=== PATIENT | female | born 1975 | race Caucasian/White ===

== ENCOUNTER 2020-03-02 07:14 | Emergency (ER) | payer OTHER ==
[2020-03-02 07:24] VITALS: TEMP 97.7; BMI 31.3
--- OUTSIDE RECORDS SUMMARY | 2020-03-02 07:37 | XMS ---
:1975 Demographics Address [address] [place] [address] Preferred Language Unknown Marital Status Unknown Gnosticist Affiliation NO Race WH Ethnic Group Unknown [facility] Support Name Relationship Address Phone SE Unavailable Unavailable Unavailable KRISTINA [address] [place] [address] Re-disclosure Warning The records that you are about to access may contain information from federally- assisted alcohol or drug abuse programs. If such information is present, then the following federally mandated warning applies: This information has been disclosed to you from records protected by federal confidentiality rules (42 CFR part 2). The federal rules prohibit you from making any further disclosure of this information unless further disclosure is expressly permitted by the written consent of the person to whom it pertains or as otherwise permitted by 42 CFR part 2. A general authorization for the release of medical or other information is NOT sufficient for this purpose. The Federal rules restrict any use of the information to criminally investigate or prosecute any alcohol or drug abuse patient.The records that you are about to access may contain highly sensitive health information, the redisclosure of which is protected by Article 27-F of the [facility] Public Health law. If you continue you may haveaccess to information: Regarding HIV / AIDS; Provided by facilities licensed or operated by the [facility] Office of Mental Health; or Provided by the [facility] Office for People With Developmental Disabilities. If such information is present, then the following [facility] mandated warning applies: This information has been disclosed to you from confidential records which are protected by state law. State law prohibits you from making any further disclosure of this information without the specific written consent of the person to whom it pertains, or as otherwise permitted by law. Any unauthorized further disclosure in violation of state law may result in a fine or mcc sentence or both. A general authorization for the release of medical or other information is NOT sufficient authorization for further disclosure. Insurance Providers Payer name Policy type / Policy ID Covered Covered constitution party's Policy Plan Coverage type constitution party ID relationship to Soler Information [facility] [id number]
--- NOTE | 2020-03-02 07:58 | PDOC ---
History of Present Illness - General Chief Complaint: Lightheaded Stated Complaint: BP PROBLEM - History of Present Illness Initial Comments: 44 YOF no significant history presenting with nausea, dizziness and lightheadedness. Patient reports she woke up this morning feeling unsteady on her feet, disequilibrium, and diaphoresis. She denies change in eating or drinking habits, recent alcohol intoxication, LMP was 3 weeks ago, no intermittent spotting, no blood in stool, no blood in urine, no diarrhea, vomiting, fever, chills, CP, SOB. Constitutional: No Weight Change, No Fever, No Chills, + Night Sweats, No Fatigue, No Malaise ENT/Mouth: No Hearing Changes, No Ear Pain, No Nasal Congestion, No Sinus Pain, No Hoarseness, No sore throat, No Rhinorrhea, No Swallowing Difficulty Eyes: No Eye Pain, No Swelling, No Redness, No Foreign Body, No Discharge, No Vision Changes Cardiovascular: No Chest Pain, No SOB, No PND, No Dyspnea on Exertion, No Orthopnea, No Claudication, No Edema, No Palpitations Respiratory: No Cough, No Sputum, No Wheezing, No Smoke Exposure, No Dyspnea Gastrointestinal: No Nausea, No Vomiting, No Diarrhea, No Constipation, No Pain, No Heartburn, No Anorexia, No Dysphagia, No Hematochezia, No Melena, No Flatulence, No Jaundice Genitourinary: No Dysmenorrhea, No DUB, No Dyspareunia, No Dysuria, No Urinary Frequency, No Hematuria, No Urinary Incontinence, No Urgency, No Flank Pain, No Urinary Flow Changes, No Hesitancy Musculoskeletal: No Arthralgias, No Myalgias, No Joint Swelling, No Joint Stiffness, No Back Pain, No Neck Pain, No Injury History Skin: No Skin Lesions, No Pruritis, No Hair Changes, No Breast/Skin Changes, No Nipple Discharge Neuro: No Weakness, No Numbness, No Paresthesias, No Loss of Consciousness, No Syncope, + Dizziness, No Headache, + Coordination Changes, No Recent Falls Psych: No Anxiety/Panic, No Depression, No Insomnia, No Personality Changes, No Delusions, No Rumination, No SI/HI/AH/VH, No Social Issues, No Memory Changes, No Violence/Abuse Hx., No Eating Concerns Heme/Lymph: No Bruising, No Bleeding, No Transfusions History, No Lymphadenopathy Endocrine: No Polyuria, No Polydipsia, No Temperature Intolerance Past History - Medical History Allergies/Adverse Reactions: Allergies Allergy/AdvReac Type Severity Reaction Status Date / Time No Known Allergies Allergy Verified 03/02/20 07:24 COPD: No - Reproductive History Is Patient Now?: No - Psycho-Social/Smoking History Smoking History: Never smoked - Substance Abuse Hx (Audit-C & DAST Scrn) How often the patient has a drink containing alcohol: Never Score: In Men: 4 or > Positive; In Women: 3 or > Positive: 0 Screen Result (Pos requires Nsg. Audit-10AR): Negative *Physical Exam - Vital Signs Last Vital Signs Temp Pulse Resp BP Pulse Ox 97.7 F 78 18 122/70 98 03/02/20 07:21 03/02/20 07:21 03/02/20 07:21 03/02/20 07:21 03/02/20 07:21 - Physical Exam General Appearance: Yes: Nourished, Appropriately Dressed HEENT: positive: EOMI, APOLONIA, Normal ENT Inspection, Normal Voice, TMs Normal, Pharynx Normal Neck: positive: Trachea midline, Normal Thyroid Respiratory/Chest: positive: Lungs Clear, Normal Breath Sounds Cardiovascular: positive: Regular Rhythm, Regular Rate, S1, S2 Gastrointestinal/Abdominal: positive: Flat, Soft Integumentary: positive: Normal Color, Dry, Warm Neurologic: positive: tip bander II-XII NML intact, Fully Oriented, Alert, Normal Mood/Affect, Normal Response, Motor Strength 5/5 ED Treatment Course - LABORATORY CBC & Chemistry Diagram: 03/02/20 08:25 03/02/20 08:25 Medical Decision Making - Medical Decision Making 44 YOF no history presents with lightheadedness and dizziness since this AM - vitals wnl - exam unremarkable - ecg, cbc, cmp, meclezine, zofran reassess: - patient feels better - will dc home with return precautions and f/u Discharge - Discharge Information Problems reviewed: Yes Clinical Impression/Diagnosis: Vertigo, Dizziness - Admission No - Follow up/Referral Referrals: ON STAFF,NOT [Primary Care Provider] - - Patient Discharge Instructions - Post Discharge Activity
[2020-03-02] MEDS ORDERED: SODIUM CHLORIDE 0.9% 500 ML INFUS.BAG IV ONE (08:14)
[2020-03-02] MEDS ORDERED: ONDANSETRON 4 MG/2 ML VIAL IVPUSH PRN (08:41)
[2020-03-02] MEDS ORDERED: MECLIZINE HCL 25 MG TABLET (FP) PO ONE (08:41)
[2020-03-02] MEDS ORDERED: MECLIZINE HCL 25 MG TABLET (FP) ONE (08:42)
[2020-03-02 08:59] LABS: BASO % 0.6 % (0-2.0); EOS % 2.9 % (0-4.5); HEMATOCRIT 39.3 % (32.4-45.2); HEMOGLOBIN 13.3 GM/dL (10.7-15.3); LYMPH % 27.6 % (8-40); MCH 30.5 pg (25.7-33.7); MCHC 33.8 g/dl (32.0-36.0); MEAN PLT VOLUME 8.6 fl (7.5-11.1); MONO % 5.5 % (3.8-10.2); NEUT % 63.4 % (42.8-82.8); PLATELET COUNT 216 K/MM3 (134-434); RBC 4.36 M/mm3 (3.60-5.2); RDW 12.3 % (11.6-15.6); WHITE BLOOD COUNT 7.4 K/mm3 (4.0-10.0)
[2020-03-02 09:15] LABS: ALBUMIN 3.4 g/dl (3.4-5.0); ALK PHOS 66 U/L (45-117); ANION GAP 9 MMOL/L (8-16); BILIRUBIN,TOTAL 0.4 mg/dL (0.2-1); BLOOD UREA NITROGEN 11.3 mg/dL (7-18); CALCIUM 9.1 mg/dL (8.5-10.1); CHLORIDE 107 mmol/L (98-107); CO2 24 mmol/L (21-32); CREATININE 0.6 mg/dL (0.55-1.3); GLUCOSE,RANDOM 98 mg/dL (74-106); SGOT/AST 16 U/L (15-37); SGPT/ALT 42 U/L (13-61); SODIUM 140 mmol/L (136-145); TOT PROT 6.7 g/dl (6.4-8.2)
--- NOTE | 2020-03-02 09:53 | PDOC ---
Documentation entered by Nikia Mcintosh SCRIBE, acting as scribe for Des Smith MD. Des Smith MD: This documentation has been prepared by the georgeibe, Nikia Mcintosh SCRIBE, under my direction and personally reviewed by me in its entirety. I confirm that the documentation accurately reflects all work, treatment, procedures, and medical decision making performed by me. Attending Attestation - Resident Resident Name: Leobardo Tovar - ED Attending Attestation I have performed the following: I have examined & evaluated the patient, The case was reviewed & discussed with the resident, I agree w/resident's findings & plan, Exceptions are as noted - HPI HPI: 03/02/20 09:49 The patient is a 44-year-old female with no reported past medical history who presents to the emergency department with dizziness and nausea. The patient reports she woke up today feeling dizzy, room spinning sensation, and nauseous, without vomiting. The patient reports associated symptoms of cold sweats. Denies fever, chills, chest pain, shortness of breath, abdominal pain, vomiting, diarrhea, weakness, or numbness to the extremities. Denies prior similar episodes. LMP: 3 weeks ago Allergies: NKA Social history: No reported use of tobacco, alcohol, or recreational drugs. - Physicial Exam PE: 03/02/20 09:50 GENERAL: Awake, alert, and fully oriented, in no acute distress. HEAD: No signs of trauma EYES: PERRLA, EOMI, sclera anicteric, conjunctiva clear ENT: Auricles normal inspection, hearing grossly normal, nares patent, oropharynx clear without exudates. Moist mucosa NECK: Nontender, no stepoffs, Normal ROM, supple, no lymphadenopathy, JVD, or masses LUNGS: Breath sounds equal, clear to auscultation bilaterally. No wheezes, and no crackles HEART: Regular rate and rhythm, normal S1 and S2, no murmurs, rubs or gallops ABDOMEN: Soft, nontender, normoactive bowel sounds. No guarding, no rebound. No masses EXTREMITIES: Normal range of motion, no edema. No clubbing or cyanosis. No co rds, erythema, or tenderness NEUROLOGICAL: Cranial nerves II through XII intact. 5/5 strength and sensation in all extremities, Normal speech, normal gait, normal cerebellar function SKIN: Warm, Dry, normal turgor, no rashes or lesions noted. - Medical Decision Making 03/02/20 09:54 44 F with room spinning dizziness. Suspect vertigo. Pt with no neuro deficits on exam. - Labs - Meclizine, zofran, fluids Pt reassessed - dizziness has resolved Pt ambulatory in Ed with steady gait Pt is well appearing, with normal vitals. Clinically stable for DC at this time. I discussed the physical exam findings, ancillary test results and final diagnoses with the patient. I answered all of the patient's questions. The patient was satisfied with the care received and felt comfortable with the discharge plan and treatment plan. The patient agrees to follow up with the primary care physician within 24-72 hours. Discharge - Discharge Information Problems reviewed: Yes Clinical Impression/Diagnosis: Dizziness, Nausea, Vertigo Condition: Improved Disposition: HOME - Follow up/Referral Referrals: Leatha Hollis MD [Staff Physician] - - Patient Discharge Instructions Patient Printed Discharge Instructions: DI for Vertigo Additional Instructions: Your bloodwork today was normal. However, this does not rule out all illnesses. Please follow up with your primary care doctor within 1 week for further evaluation. If you do not have one, call the number provided to make an appointment with Dr. Hollis. If you experience worsening dizziness, nausea, vomiting, fevers, or any other concerning symptoms, return to the ER immediately. - Post Discharge Activity
[2020-03-02 10:23] VITALS: BP 124/60; PULSE 88
--- NOTE | 2020-03-02 15:03 | EKG ---
Test Reason : Blood Pressure : / mmHG Vent. Rate : 075 BPM Atrial Rate : 075 BPM P-R Int : 188 ms QRS Dur : 074 ms QT Int : 394 ms P-R-T Axes : 042 014 013 degrees QTc Int : 439 ms NORMAL SINUS RHYTHM NORMAL ECG NO PREVIOUS ECGS AVAILABLE Confirmed by MD Montes Daniel ([id number]) on 03/02/2020 3:03:29 PM Referred By: Confirmed By:Oziel Montes MD
== END 2020-03-02 10:31 | disposition home or self-care (01) ==
LOC: JER 07:14
PROC: 3E033GC Introduction of Other Therapeutic Substance into Peripheral Vein, Percutaneous Approach (ICD-10-PCS; principal; 2020-03-02)
DX: R42 Dizziness and giddiness (principal)
CPT/HCPCS: 36415; 80053; 82550; 84484; 84703; 85025; 93005; 93010; 99284-25